=== PATIENT | female | born 1930 | race Two or more races ===

== ENCOUNTER 2017-12-15 12:35 | Outpatient (CLI) | payer MEDICARE, OTHER | END 2017-12-15 23:59 | disposition home or self-care (01) | LOC: WOU 12:35 | PROVIDERS: ATTEND Specialist | DX: L03.012 Cellulitis of left finger (principal); L03.011 Cellulitis of right finger; B96.89 Other specified bacterial agents as the cause of diseases classified elsewhere; I11.0 Hypertensive heart disease with heart failure; I50.22 Chronic systolic (congestive) heart failure; Z79.82 Long term (current) use of aspirin; Z79.899 Other long term (current) drug therapy; E11.9 Type 2 diabetes mellitus without complications; E78.5 Hyperlipidemia, unspecified | CPT/HCPCS: 17250; 87070-TC; 87186-TC; A6402; Z7610 ==

== ENCOUNTER 2017-12-22 11:10 | Outpatient (CLI) | payer MEDICARE, OTHER | END 2017-12-22 23:59 | disposition home or self-care (01) | LOC: WOU 11:10 | PROVIDERS: ATTEND Specialist | DX: L03.012 Cellulitis of left finger (principal); L03.011 Cellulitis of right finger; B96.4 Proteus (mirabilis) (morganii) as the cause of diseases classified elsewhere; B95.5 Unspecified streptococcus as the cause of diseases classified elsewhere; E78.5 Hyperlipidemia, unspecified; E11.621 Type 2 diabetes mellitus with foot ulcer; L97.512 Non-pressure chronic ulcer of other part of right foot with fat layer exposed; I11.0 Hypertensive heart disease with heart failure; I50.22 Chronic systolic (congestive) heart failure; Z79.4 Long term (current) use of insulin; Z79.899 Other long term (current) drug therapy | CPT/HCPCS: A6402; G0463; Z7610 ==

== ENCOUNTER 2018-01-12 12:17 | Outpatient (CLI) | payer MEDICARE, OTHER | END 2018-01-12 23:59 | disposition home or self-care (01) | LOC: WOU 12:17 | PROVIDERS: ATTEND Specialist | DX: L03.012 Cellulitis of left finger (principal); L03.011 Cellulitis of right finger; B96.4 Proteus (mirabilis) (morganii) as the cause of diseases classified elsewhere; B95.5 Unspecified streptococcus as the cause of diseases classified elsewhere; E11.9 Type 2 diabetes mellitus without complications; I11.0 Hypertensive heart disease with heart failure; I50.22 Chronic systolic (congestive) heart failure; E78.5 Hyperlipidemia, unspecified; Z74.09 Other reduced mobility; Z79.4 Long term (current) use of insulin; Z79.82 Long term (current) use of aspirin; Z79.899 Other long term (current) drug therapy | CPT/HCPCS: A6209; A6402; G0463; Z7610 ==